=== PATIENT | female | born 1945 | race Caucasian/White ===

== ENCOUNTER → 2021-12-01 | Outpatient (CLI) | payer MEDICARE | LOC: CT 11:44 | PROVIDERS: ATTEND Internal Medicine | DX: H81.10 Benign paroxysmal vertigo, unspecified ear (principal); R26.0 Ataxic gait; J40 Bronchitis, not specified as acute or chronic; R63.4 Abnormal weight loss | CPT/HCPCS: 70450; 71046 ==

== ENCOUNTER 2022-07-10 05:15 | Observation (INO) | payer MEDICARE ==
[~2022-07-10] VITALS: Ht 154.9 cm; Wt 56.2 kg
[~2022-07-10 05:15] MED LIST: AMLODIPINE BESYL5 MG PO; FEROSUL325 MG PO; METFORMIN HCL500 M2 PO; METOPROLOL PO; OMEPRAZOLE40 MG PO; PRAVASTATIN SOD80 MG PO; SYNTHROID125 MCG PO; TYLENOL EXTRA500 MG PO; VITAMIN B122500 MCG PO; VITAMIN C500 MG PO; VITAMIN D350 MCG PO
[2022-07-10] MEDS ORDERED: CEFAZOLIN SODIUM 2 GM ONE (05:55)
[2022-07-10] MEDS ORDERED: GABAPENTIN 300 MG CAP ONE (05:57)
[2022-07-10] MEDS ORDERED: CELECOXIB 200 MG CAP ONE (05:57)
[2022-07-10] MEDS ORDERED: DEXAMETHASONE SOD PHOS 10 MG/1 ML VIAL ONE (05:57)
[2022-07-10] MEDS ORDERED: ROPIVACAINE 246.25 MG, EPINEPHRINE HCL 1:1000 1ML 0.5 MG, CLONIDINE HCL 0.08 MG, KETORO... INJ ONE ×5 (06:30)
[2022-07-10 06:52] LABS: CALCIUM 11.1 mg/dL (8.4-10.2); CREATININE, SERUM 0.87 mg/dL (0.57-1.11)
[2022-07-10] MEDS ORDERED: Vancomycin IV 1,000 MG ONE (06:52)
[2022-07-10] MEDS ORDERED: TRANEXAMIC ACID 20 ML ONE (06:52)
[2022-07-10] MEDS ORDERED: SODIUM CHLORIDE 0.9% 500ML 500 ML ONE (06:53)
[2022-07-10] MEDS ORDERED: FENTANYL CITRATE/PF 100MCG/2 ML INJ ONE ×2 (07:16→12:39)
[2022-07-10] MEDS ORDERED: MIDAZOLAM HCL 2 MG/2 ML VIAL ONE (07:16)
[2022-07-10] MEDS ORDERED: ACETAMINOPHEN 1000 MG/100 ML 100 ML IV ONE (07:17)
[2022-07-10] MEDS ORDERED: HYDROCODONE/APAP 7.5MG-325MG 1 EA TAB PO PRN (08:45)
[2022-07-10] MEDS ORDERED: ONDANSETRON HCL INJ 2MG/ML 2ML 2 MG/ML VIAL IV PRN (08:45)
[2022-07-10] MEDS: SODIUM CHLORIDE 0.9% 1000ML 1,000 ML IV SCH ×2 (08:45→18:45)
[2022-07-10] MEDS ORDERED: HYDROCODONE/APAP 5MG-325MG TAB PO PRN (08:45)
[2022-07-10] MEDS ORDERED: ZOLPIDEM TARTRATE 5 MG TAB PO PRN (08:45)
[2022-07-10] MEDS ORDERED: ACETAMINOPHEN 650 MG SUPP PR PRN (08:45)
[2022-07-10] MEDS ORDERED: DOCUSATE SODIUM 100 MG CAP PO PRN (08:45)
[2022-07-10] MEDS ORDERED: DIPHENHYDRAMINE HCL INJ 50 MG/ML VIAL IV PRN (08:45)
[2022-07-10] MEDS: ASPIRIN 325 MG TAB PO SCH ×2 (09:00→16:14)
[2022-07-10 10:43] VITALS: BP 123/68
[2022-07-10] MEDS ORDERED: LIDOCAINE HCL 2% LOCAL INJ 5 ML SDV VIAL INJ ONE (12:18)
[2022-07-10] MEDS ORDERED: ONDANSETRON HCL INJ 2MG/ML 2ML 2 MG/ML VIAL ONE (12:18)
[2022-07-10] MEDS ORDERED: POVIDONE IODINE 0.05% 0.05 % ML PO ONE (12:18)
[2022-07-10] MEDS ORDERED: SEVOFLURANE INHAL SOLN 250 ML PEN BTL ONE (12:18)
[2022-07-10] MEDS ORDERED: PROPOFOL IV EMULSION 10 MG/ML 20 ML VIAL ONE (12:18)
[2022-07-10] MEDS ORDERED: DEXAMETHASONE SOD PHOS INJ 4 MG/ML SDV ONE (12:18)
[2022-07-10] MEDS ORDERED: BUPIVACAINE HCL 0.5% INJ 30 ML VIAL INJ ONE (12:24)
[2022-07-10] MEDS ORDERED: ASPIRIN81 MG PO (15:28)
[2022-07-10 16:08] VITALS: BP 119/77
[2022-07-10] MEDS: CELECOXIB 200 MG CAP PO SCH (16:15)
[2022-07-10] MEDS ORDERED: ACETAMINOPHEN 325 MG TAB PO PRN (18:30)
[2022-07-10 20:00] VITALS: BP 128/69
[2022-07-10] MEDS ORDERED: AMLODIPINE BESYLATE 5 MG TAB PO SCH (21:00)
[2022-07-10] MEDS ORDERED: PRAVASTATIN 20 MG TAB PO SCH (21:00)
[2022-07-10] MEDS ORDERED: SIMVASTATIN 40 MG TAB PO SCH (21:00)
[2022-07-10] MEDS: PANTOPRAZOLE SOD 40 MG TABEC PO SCH (21:26)
[2022-07-11] MEDS: SODIUM CHLORIDE 0.9% 1000ML 1,000 ML IV SCH (04:11)
[2022-07-11 05:09] LABS: HEMOGLOBIN 9.1 g/dL (12.0-16.0)
[2022-07-11 05:43] VITALS: BP 130/71
[2022-07-11] MEDS ORDERED: LEVOTHYROXINE SODIUM 50 MCG TAB PO SCH (06:00)
[2022-07-11 08:00] VITALS: BP 144/68
[2022-07-11] MEDS ORDERED: METFORMIN HCL 500 MG TAB CR PO SCH (08:00)
[2022-07-11 08:08] VITALS: BP 144/68
[2022-07-11] MEDS: PANTOPRAZOLE SOD 40 MG TABEC PO SCH (08:09)
[2022-07-11] MEDS ORDERED: ACETAMINOPHEN 1000 MG/100 ML IV PRN (08:45)
[2022-07-11] MEDS ORDERED: ASPIRIN 81 MG CHEW TAB PO SCH (09:00)
[2022-07-11] MEDS ORDERED: ASCORBIC ACID 500 MG TAB PO SCH (09:00)
[2022-07-11] MEDS ORDERED: FERROUS SULFATE 325 MG TAB PO SCH (09:00)
[2022-07-11] MEDS: ASPIRIN 325 MG TAB PO SCH (10:00)
[2022-07-11] MEDS: CELECOXIB 200 MG CAP PO SCH (10:00)
[2022-07-11 11:24] VITALS: BP 141/69
== END 2022-07-11 12:21 | disposition home health service (06) ==
LOC: OR 05:15 → PACU V 09:28 → MED/SURG 10:37
PROVIDERS: ADMIT Specialist; ATTEND Specialist
DX: M17.0 Bilateral primary osteoarthritis of knee (principal); K21.9 Gastro-esophageal reflux disease without esophagitis; E78.5 Hyperlipidemia, unspecified; G31.84 Mild cognitive impairment of uncertain or unknown etiology; I13.10 Hypertensive heart and chronic kidney disease without heart failure, with stage 1 through stage 4 chronic kidney disease, or unspecified chronic kidney disease; E11.22 Type 2 diabetes mellitus with diabetic chronic kidney disease; N18.2 Chronic kidney disease, stage 2 (mild); D63.1 Anemia in chronic kidney disease; Z01.818 Encounter for other preprocedural examination; Z20.822 Contact with and (suspected) exposure to COVID-19; Z79.84 Long term (current) use of oral hypoglycemic drugs
CPT/HCPCS: 0223U; 27447; 36415 ×3; 73560; 80048; 82948; 85014; 85018; 86850; 86900; 86920; 94799 ×2; 97110 ×2; 97116 ×2; 97161; 97530 ×2; G0378 ×2; J0131; J0171; J0690 ×2; J1100 ×2; J1885; J2001; J2250; J2405; J2704; J2795; J3010; J3370; J7030 ×2; J7040; S0164 ×2

== ENCOUNTER 2022-08-15 11:37 | Observation (INO) | payer MEDICARE ==
[~2022-08-15] VITALS: Ht 154.9 cm; Wt 54.0 kg
[~2022-08-15 11:37] MED LIST changes: +ASPIRIN81 MG PO
[2022-08-15] MEDS ORDERED: SODIUM CHLORIDE 0.9% 1000ML 1,000 ML IV SCH (12:45)
[2022-08-15] MEDS ORDERED: IOPAMIDOL 370 MG/ML 100 ML INFUS..BTL INJ ONE (13:58)
[2022-08-15] MEDS ORDERED: POTASSIUM CHLORIDE 10MEQ EA PO ONE (15:00)
[2022-08-15] MEDS ORDERED: POTASSIUM CHLORIDE 20MEQ/100ML 100 ML IV ONE (15:00)
[2022-08-15] MEDS ORDERED: SODIUM CHLORIDE FLUSH 10 ML SYR INJ PRN (15:00)
[2022-08-15] MEDS ORDERED: ONDANSETRON HCL INJ 2MG/ML 2ML 2 MG/ML VIAL IV PRN (15:00)
[2022-08-15] MEDS ORDERED: POTASSIUM CHLORIDE 20 MEQ TAB CR PO ONE (16:05)
[2022-08-15] MEDS ORDERED: SODIUM CHLORIDE 0.9% 500ML 500 ML ONE (16:17)
[2022-08-15] MEDS ORDERED: POTASSIUM CHLORIDE 20MEQ/100ML 100 ML ONE (16:18)
[2022-08-15] MEDS ORDERED: CEFTRIAXONE 1 GM VIAL ONE (16:18)
[2022-08-15] MEDS ORDERED: SODIUM CHLORIDE 0.9% 1000ML 1,000 ML ONE (17:08)
[2022-08-15] MEDS ORDERED: METOPROLOL SUCC50 MG PO (19:45)
[2022-08-15] MEDS ORDERED: HYDROCODON-ACE1 EA12 PO (19:45)
[2022-08-15 20:00] VITALS: BP 148/75
[2022-08-15] MEDS ORDERED: ACETAMINOPHEN 325 MG TAB PO PRN (21:15)
[2022-08-16 00:40] VITALS: BP 154/80
[2022-08-16 04:45] VITALS: BP 159/72
[2022-08-16] MEDS ORDERED: TUMS ULTRA400 MG PO (06:56)
[2022-08-16 07:01] LABS: BASOPHILS # (AUTO) 0.1 (0.0-0.1); EOSINOPHILS # (AUTO) 0.2 (0.0-0.4); EOSINOPHILS % 1.9 % (0.0-6.0); HEMOGLOBIN 9.7 g/dL (12.0-16.0); LYMPHOCYTES # (AUTO) 1.4 (1.0-3.2); LYMPHOCYTES % 14.6 % (18.0-39.1); MEAN CORPUSCULAR HEMOGLOBIN 25.5 pg (28-32); MEAN CORPUSCULAR HGB CONC 30.3 g/dL (31-35); MONOCYTES # (AUTO) 0.8 (0.2-0.8); MONOCYTES % 8.2 % (4.4-11.3); NEUTROPHILS # (AUTO) 7.2 (2.1-6.9); NEUTROPHILS % 73.6 % (38.7-80.0); PLATELET COUNT 369 x10e3/uL (140-360); RED BLOOD COUNT 3.81 x10e6/uL (3.6-5.1)
[2022-08-16 07:44] VITALS: BP 140/71
[2022-08-16] MEDS ORDERED: SODIUM CHLORIDE 0.9% 250ML 250 ML ONE (07:45)
[2022-08-16 08:19] LABS: ALBUMIN 3.6 g/dL (3.5-5.0); ALBUMIN/GLOBULIN RATIO 1.1 (0.8-2.0); ALKALINE PHOSPHATASE 60 IU/L (40-150); ANION GAP 16.3 mmol/L (8-16); BLOOD UREA NITROGEN 10 mg/dL (7-26); BUN/CREATININE RATIO 13 (6-25); CARBON DIOXIDE 22 mmol/L (22-29); CHLORIDE 100 mmol/L (98-107); CREATININE, SERUM 0.77 mg/dL (0.57-1.11); GLUCOSE 125 mg/dL (74-118); POTASSIUM 3.3 mmol/L (3.5-5.1); SODIUM 135 mmol/L (136-145)
[2022-08-16 08:26] VITALS: BP 140/71
[2022-08-16 08:48] LABS: ALANINE AMINOTRANSFERASE < 6 IU/L (0-55)
[2022-08-16 08:49] LABS: MAGNESIUM < 0.6 MG/DL (1.3-2.1)
[2022-08-16 08:50] LABS: CALCIUM 8.8 mg/dL (8.4-10.2)
[2022-08-16] MEDS ORDERED: HYDROCODONE/APAP 7.5MG-325MG 1 EA TAB PO PRN (09:45)
[2022-08-16] MEDS ORDERED: keflex PO (10:20)
[2022-08-16] MEDS ORDERED: ECOTRIN81 MG PO (10:21)
[2022-08-16] MEDS ORDERED: MAGNESIUM OXID400 MG PO (10:21)
[2022-08-16] MEDS ORDERED: POTASSIUM CHLORIDE 20 MEQ TAB CR PO ONE (10:30)
[2022-08-16] MEDS ORDERED: MAGNESIUM SULFATE 2GM/50ML 100 ML IV ONE (10:30)
[2022-08-16] MEDS ORDERED: METOPROLOL SUCCINATE 50 MG TAB XL PO SCH (10:30)
[2022-08-16 11:20] VITALS: BP 160/77
[2022-08-16] MEDS ORDERED: ONDANSETRON HCL 4 MG ORAL DISINTEGRATING TAB PO PRN (12:30)
[2022-08-16 15:41] VITALS: BP 102/62
[2022-08-16] MEDS ORDERED: SIMVASTATIN 40 MG TAB PO SCH (21:00)
[2022-08-16] MEDS ORDERED: PRAVASTATIN 20 MG TAB PO SCH (21:00)
[2022-08-16] MEDS ORDERED: AMLODIPINE BESYLATE 5 MG TAB PO SCH (21:00)
[2022-08-17] MEDS ORDERED: LEVOTHYROXINE SODIUM 75 MCG TAB PO SCH (06:00)
[2022-08-17] MEDS ORDERED: PANTOPRAZOLE SOD 40 MG TABEC PO SCH (07:30)
[2022-08-17] MEDS ORDERED: BALSAM PERU/CASTOR OIL 60 GM OINT...G. TP SCH (09:00)
[2022-08-17] MEDS ORDERED: ASCORBIC ACID 500 MG TAB PO SCH (09:00)
== END 2022-08-16 15:42 | disposition home or self-care (01) ==
LOC: FSED 11:45 → ERHOLD 15:03 → MED/SURG3 19:08
PROVIDERS: ADMIT Internal Medicine; ATTEND Internal Medicine
DX: E78.5 Hyperlipidemia, unspecified (principal); M19.90 Unspecified osteoarthritis, unspecified site; E11.9 Type 2 diabetes mellitus without complications; Z96.652 Presence of left artificial knee joint; E87.6 Hypokalemia; N39.0 Urinary tract infection, site not specified; Z88.7 Allergy status to serum and vaccine; Z20.822 Contact with and (suspected) exposure to COVID-19; E11.69 Type 2 diabetes mellitus with other specified complication; E11.65 Type 2 diabetes mellitus with hyperglycemia; D64.9 Anemia, unspecified; K22.89 Other specified disease of esophagus; Z79.899 Other long term (current) drug therapy
CPT/HCPCS: 36415; 70450; 71260; 74177; 80053 ×2; 81003; 82553; 83735; 84484; 85025 ×2; 87086; 93005; 99252; 99284; G0378 ×2; J0696 ×2; J2405; J3475; J3480; J7030; J7040; J7050; Q9967; U0002